=== PATIENT | male | born 1985 | race African-American/Black ===

== ENCOUNTER 2017-11-30 21:01 | Emergency (ER) | payer OTHER ==
[~2017-11-30] VITALS: Ht 177.8 cm; Wt 73.5 kg
[2017-12-01] MEDS ORDERED: ACETAMINOPHEN 325MG TABLET PO STA (01:15)
[2017-12-01 03:40] VITALS: BP 126/78
== END 2017-12-01 03:40 | disposition home or self-care (01) ==
LOC: ER 22:13
DX: S39.012A Strain of muscle, fascia and tendon of lower back, initial encounter (principal); S06.9X1A Unspecified intracranial injury with loss of consciousness of 30 minutes or less, initial encounter; V43.52XA Car driver injured in collision with other type car in traffic accident, initial encounter; Y93.89 Activity, other specified; Y92.488 Other paved roadways as the place of occurrence of the external cause
CPT/HCPCS: 70450; 99284